=== PATIENT | male | born 1960 | race Caucasian/White ===

== ENCOUNTER → 2022-02-08 | Outpatient (CLI) | payer OTHER ==
[~2022-02-08] VITALS: Ht 170.2 cm; Wt 67.6 kg
[~2022-02-08] MED LIST: ALPR0.5T7 PO; ASPI-1238 PO; LORA10TA72 PO; METO50TA15 PO; SIMV20TA26 PO; TADA10TA14 PO
== END | disposition home or self-care (01) ==
LOC: PREOP 08:54
PROVIDERS: ATTEND Surgery
DX: Z01.818 Encounter for other preprocedural examination (principal)

== ENCOUNTER 2022-02-19 08:30 | Day surgery (SDC) | payer OTHER ==
[~2022-02-19] VITALS: Ht 170.2 cm; Wt 67.6 kg
[2022-02-19] VITALS (7 sets, daily range): BP systolic 112–147; BP diastolic 81–96
[2022-02-19] MEDS ORDERED: LACTATED RINGERS 1,000 ML IV STA (08:35)
[2022-02-19] MEDS ORDERED: HURRICAINE EXT TUBE (BENZOCAINE) XX PRN (08:45)
--- NOTE | 2022-02-19 08:52 | Progress Note-Pre Operative ---
Pre-Operative Progress Note H&P Reviewed The H&P was reviewed, patient examined and no changes noted. Time Seen by Provider: 08:49 Date H&P Reviewed: February 19, 2022 Time H&P Reviewed: 08:49 Pre-Operative Diagnosis: +cologuard, chronic gastritis FRNACES MARIA DO February 19, 2022 08:52
[2022-02-19] MEDS ORDERED: MIDAZOLAM 2 MG/2 ML (VERSED) VIAL ONE (09:31)
[2022-02-19] MEDS ORDERED: PROPOFOL INJECTION 50 ML IV ONE (09:31)
--- NOTE | 2022-02-19 10:04 | Progress Note-Post Operative ---
Post-Operative Progess Note Surgeon (s)/Obstetrician/Gynecologist (s) Surgeon FRANCES MARIA DO Obstetrician/Gynecologist: none Pre-Operative Diagnosis +cologuard, chronic gastritis Post-Operative Diagnosis Gastritis Small hiatal hernia Int hemorrhoids Procedure & Operative Findings Date of Procedure 02/19/22 Procedure Performed/Findings EGD with bx Colonoscopy PROCEDURE NOTE: After informed consent was obtained, the patient was brought to the endoscopy suite, placed in bed in left lateral decubitus position. He was administered IV sedation by the NUTRITIONAL CHEMIST who then monitored vitals the entire time, heart rate, blood pressure and pulse ox and the scope was inserted down the mouth through the esophagus into the stomach. Pushed into the stomach and past the antrum into the duodenum. Duodenum looked good. Pulled back and did a biopsy of antrum, then retroflexed the scope, saw a small hiatal hernia and took a picture of this. Then pulled the scope into the GE junction, took a picture of mild esophagitis and then did a biopsy of the GE junction. Pushed the scope back into the stomach, suctioned all the air out of the stomach. At this point pulled the scope up the esophagus and out the mouth. Switched camera, switched gloves, went down below, started the colonoscopy. Pushed all the way into about 140 cm to get all the way to cecum, took a picture of the appendiceal orifice, noted the ileocecal valve and then slowly withdrew the scope, insufflating to look circumferentially at the olivares. Starting in the cecum, up the ascending colon to the hepatic flexure, then down the transverse colon, splenic flexure, into the descending colon, down into the sigmoid and finally into the rectum, retroflexed in the rectal vault, saw some minimal internal hemorrhoids and took a picture of this. The patient tolerated the procedure and he recovered in the endoscopy suite. Recommended for repeat colonoscopy in 10 years Anesthesia Type IV sedation by NUTRITIONAL CHEMIST Estimated Blood Loss Estimated blood loss (mL): scant Specimens/Packing Specimens Removed antral bx body of stomach bx GE jxn bx FRANCES MARIA DO February 19, 2022 10:04
--- NOTE | 2022-02-19 10:05 | Endoscopy Discharge Instruct ---
Endo Procedure/Findings Findings 1.: Gastritis 2.: Hiatal Hernia 3.: Internal Hemorrhoids Discharge Instructions - Activity: You might feel a little sleepy until tomorrow. This is due to the medicine you received to relax you. Until tomorrow, you should: NOT drive a car, operate machinery or power tools. NOT drink any alcoholic beverages. NOT make any important decisions or sign importortant papers. Do not return to work until tomorrow, unless otherwise instructed. Resume previous activities tomorrow. Diet: Start by taking liquids. If you tolerate liquids, advance to solid food. 1.: EGD in 3 years 2.: Colonscopy in 10 years Notify Physician - If you experience excessive bleeding, unusual abdominal pain, fever, or chest pain, contact your doctor immediately. FRANCES MARIA DO February 19, 2022 10:05
--- NOTE | 2022-02-19 13:06 | Anesthesia-General Post-Op ---
MAC Patient Condition Mental Status/LOC: Same as Preop Cardiovascular: Satisfactory Nausea/Vomiting: Absent Respiratory: Satisfactory Pain: Controlled Complications: Absent Post Op Complications Complications None Follow Up Care/Instructions Patient Instructions None needed. Anesthesiology Discharge Order Discharge Order Patient is doing well, no complaints, stable vital signs, no apparent adverse anesthesia problems. No complications reported per nursing. DAVID FELIX CRNA February 19, 2022 13:06
== END 2022-02-19 11:22 | disposition home or self-care (01) ==
LOC: ENDO 08:30
PROVIDERS: ATTEND Surgery
DX: K29.50 Unspecified chronic gastritis without bleeding (principal); K44.9 Diaphragmatic hernia without obstruction or gangrene; K64.8 Other hemorrhoids; K21.00 Gastro-esophageal reflux disease with esophagitis, without bleeding; Z79.82 Long term (current) use of aspirin; Z85.9 Personal history of malignant neoplasm, unspecified